=== PATIENT | female | born 1990 | race Caucasian/White ===

== ENCOUNTER 2017-07-02 15:37 | Emergency (ER) | payer SELFPAY ==
[2017-07-02 17:19] LABS: microscopic required? YES; urine erythrocyte 3+ (NEGATIVE)
[2017-07-02 17:44] VITALS: BP 125/82
== END 2017-07-02 17:44 | disposition home or self-care (01) ==
LOC: ED 15:37
PROVIDERS: Emergency Medicine
DX: N10 Acute pyelonephritis (principal); M79.1 Myalgia; R51 Headache; R05 Cough
CPT/HCPCS: 36415; J0696; Q0092